=== PATIENT | female | born 1950 | race Caucasian/White ===

== ENCOUNTER 2018-07-28 12:33 | Observation (INO) | payer OTHER, MEDICARE ==
[2018-07-28] MEDS ORDERED: ASPIRIN 81 MG CHEWABLE TAB PO ONE (13:00)
--- NOTE | 2018-07-28 13:25 | EDPHY ---
H & P Time Seen by Provider: 07/28/18 13:00 HPI/ROS: HPI Chest pain, lightheaded, high blood pressure. 68-year-old female by private vehicle. This patient reports that she has had intermittent chest pain described as left-sided, sharp, achy, ongoing for the last 1-2 weeks but worse over the last 3-5 days. She describes radiation of the pain into her left arm. She was at the office of her ENT physician to be evaluated for sinus congestion. She recently had a facial and sinus CT, Dr. Elkin Almaguer evaluated her. She told him about her chest pain and noted that her blood pressure was high and advised her to come to the emergency department to be evaluated. She currently does not have any chest pain. She has no previous history of coronary artery disease. Denies a history of hyperlipidemia , diabetes, no formal diagnosis of hypertension. She denies any significant family history of coronary artery disease. She reports she has had intermittent lightheadedness and some intermittent dizziness. She has an appointment to see Dr. Shravan Wilson tomorrow for evaluation of her dizziness which she describes as both a lightheadedness and a vertigo. She currently denies any lightheadedness or dizziness. She was also told by her primary care physician that she has a high hematocrit and is going to see Hematology, Dr. Jaleesa koroma, scheduled appointment in 2 weeks. She denies any association of her pain with exertion. ROS: Constitutional: No fever, no chills. As above. Eyes: No discharge. No changes in vision. ENT: No sore throat. No nasal congestion or rhinorrhea. Respiratory: No cough. No shortness of breath. Cardiac: As above, no palpitations. Gastrointestinal: No abdominal pain, no vomiting, no diarrhea. Genitourinary: No hematuria. No dysuria or increased frequency with urination. Musculoskeletal: No back pain. No neck pain. No myalgias or arthralgias. Skin: No rashes. Neurological: No headache. No focal weakness or altered sensation. Past medical history: Osteoporosis, scleroderma, as above. Social history: Nonsmoker. She is here by herself. No alcohol. Physical Exam: General Appearance: Alert, no distress. This patient is responding to questions appropriately and in full sentences. This patient appears well- hydrated and well-nourished. Eyes: Pupils equal and round no pallor or injection. No lid edema, erythema or injection. Respiratory: There are no retractions, lungs are clear to auscultation with good air movement bilaterally. No tachypnea. Cardiovascular: Regular rate and rhythm. No murmur. Gastrointestinal: Abdomen is soft and nontender, no masses, bowel sounds normal. No focal tenderness at McBurney's point. No Jasso sign. Neurological: Motor sensory function is grossly intact. Cranial nerves are normal. Gait is normal. Skin: Warm and dry, no rashes. Musculoskeletal: Neck is supple and nontender. Extremities are symmetrical. All joints range without pain or impingement. Psychiatric: No agitation. No depression. Database: EKG: EKG time is 12:57 p.m.; EKG shows a narrow complex normal sinus rhythm with a ventricular rate of 72. The MT, QRS, QT intervals are within normal limits. There are no ST-T wave changes indicative of ischemic or injury pattern. No evidence of right heart strain. Interpreted by me. Imaging: Chest x-ray AP portable: The cardiac mediastinal silhouette is unremarkable. No evidence of pneumothorax or infiltrate. Findings consistent with emphysema. No acute cardiopulmonary disease process. Interpreted by me. Procedures: Emergency department course: Triage vital signs reviewed. She was moderately hypertensive. Vital signs are otherwise negative. On my evaluation her blood pressure is 143/85. 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 She was given 324 mg of chewed aspirin. EKG obtained and reviewed by myself. Heart score is 3. 2:50 p.m., the patient was re-evaluated, results of her diagnostic workup were discussed with her. I explained her heart score. I discussed admission for observation and further testing verses discharged to home with outpatient cardiology follow-up. The patient competently engages in shared decision making. They demonstrate capacitance to make decisions. She is currently thinking about what she wants to do. 3:20 p.m., patient re-evaluated, she appears comfortable at this time. Her blood pressure is currently 164/98. She is concerned about this. She has decided that she would like to be admitted to the hospital for further evaluation overnight. Hospitalist nila. 3:40 p.m., spoke with hospitalist Dr. Jaime. Case discussed in detail with her. She accepts this patient for admission. The patient was admitted in stable condition to telemetry observation. Differential Diagnosis: The differential diagnosis on this patient includes but is not limited to angina , musculoskeletal pain. Myocardial infarction, pericarditis, myocarditis, pneumothorax, aortic dissection unlikely. This represents a partial list of diagnoses considered. These considerations are based on history, physical exam , past history, reassessment and diagnostic testing. Smoking Status: Never smoked Constitutional: Initial Vital Signs Temperature (C) 36.4 C 07/28/18 12:34 Heart Rate 78 07/28/18 12:34 Respiratory Rate 16 07/28/18 12:34 Blood Pressure 159/101 H 07/28/18 12:34 O2 Sat (%) 95 07/28/18 12:34 O2 Delivery Mode Room Air Allergies/Adverse Reactions: Shellfish *RETIRED-02/02/12 [Shellfish] Allergy (Severe, Verified 08/15/11 11:23 ) Sulfa (Sulfonamide Antibiotics) Allergy (Severe, Verified 08/15/11 11:23) Home Medications: Medication Instructions Recorded Hydrocodone Bit/Acetaminophen 1 tab PO Q4-6PRN #15 tab 08/15/11 [Vicodin 5/500] No Medications [NO HOME 1 ea MISC 08/15/11 MEDICATIONS] Medical Decision Making - Diagnostics Imaging Results: Imaging Impressions Chest X-Ray 07/28/18 13:00 Impression: COPD with no acute localizing features, or substantial change from 05/13/2013. - Data Points Laboratory Results: Laboratory Results 07/28/18 14:04 07/28/18 13:10 07/28/18 07/28/18 07/28/18 14:04 14:04 13:13 WBC 6.76 10^3/uL 10^3/uL (3.80-9.50) RBC 5.11 10^6/uL 10^6/uL (4.18-5.33) Hgb 15.5 g/dL g/dL (12.6-16.3) Hct 46.2 % % (38.0-47.0) MCV 90.4 fL fL (81.5-99.8) MCH 30.3 pg pg (27.9-34.1) MCHC 33.5 g/dL g/dL (32.4-36.7) RDW 13.4 % % (11.5-15.2) Plt Count 293 10^3/uL 10^3/uL (150-400) MPV 10.8 fL fL (8.7-11.7) Neut % (Auto) 64.0 % % (39.3-74.2) Lymph % (Auto) 24.3 % % (15.0-45.0) [place] % (Auto) 5.8 % % (4.5-13.0) Eos % (Auto) 4.9 % % (0.6-7.6) Baso % (Auto) 0.9 % % (0.3-1.7) Nucleat RBC Rel Count 0.0 % % (0.0-0.2) Absolute Neuts (auto) 4.33 10^3/uL 10^3/uL (1.70-6.50) Absolute Lymphs (auto) 1.64 10^3/uL 10^3/uL (1.00-3.00) Absolute Monos (auto) 0.39 10^3/uL 10^3/uL (0.30-0.80) Absolute Eos (auto) 0.33 10^3/uL 10^3/uL (0.03-0.40) Absolute Basos (auto) 0.06 10^3/uL 10^3/uL (0.02-0.10) Absolute Nucleated RBC 0.00 10^3/uL 10^3/uL (0-0.01) Immature Gran % 0.1 % % (0.0-1.1) Immature Gran # 0.01 10^3/uL 10^3/uL (0.00-0.10) PT 12.1 SEC SEC (12.0-15.0) INR 0.93 (0.83-1.16) APTT 26.9 SEC SEC (23.0-38.0) Sodium Potassium Chloride Carbon Dioxide Anion Gap BUN Creatinine Estimated GFR Glucose Calcium POC Troponin I 0.00 ng/mL ng/mL (0.00-0.08) Specimen Hemolysis 07/28/18 07/28/18 07/28/18 13:10 13:10 13:10 WBC REJ RBC REJ Hgb REJ Hct REJ MCV REJ MCH REJ MCHC REJ RDW REJ Plt Count REJ MPV REJ Neut % (Auto) REJ Lymph % (Auto) REJ [place] % (Auto) REJ Eos % (Auto) REJ Baso % (Auto) REJ Nucleat RBC Rel Count REJ Absolute Neuts (auto) REJ Absolute Lymphs (auto) REJ Absolute Monos (auto) REJ Absolute Eos (auto) REJ Absolute Basos (auto) REJ Absolute Nucleated RBC REJ Immature Gran % REJ Immature Gran # REJ PT REJ INR REJ APTT REJ Sodium 137 mEq/L mEq/L (135-145) Potassium 4.9 mEq/L mEq/L (3.5-5.2) Chloride 105 mEq/L mEq/L (97-110) Carbon Dioxide 23 mEq/l mEq/l (22-31) Anion Gap 9 mEq/L mEq/L (6-14) BUN 7 mg/dL mg/dL (7-23) Creatinine 0.5 mg/dL L mg/dL (0.6-1.0) Estimated GFR > 60 Glucose 91 mg/dL mg/dL (70-100) Calcium 9.8 mg/dL mg/dL (8.5-10.4) POC Troponin I Specimen Hemolysis 121 Medications Given: Discontinued Medications Aspirin (Aspirin) 324 mg PO EDNOW ONE Stop: 07/28/18 13:01 Last Admin: 07/28/18 13:18 Dose: 324 mg Point of Care Test Results: Chemistry 07/28/18 13:13 POC Troponin I 0.00 ng/mL ng/mL (0.00-0.08) Departure - Departure Disposition: [facility] Inpatient Acute Clinical Impression: Chest pain, Elevated blood pressure reading Referrals: Maddi Link MD [Primary Care Provider] - As per Instructions
[2018-07-28 14:23] LABS: PLATELET COUNT 293 10^3/uL (150-400)
[2018-07-28 14:33] LABS: INR 0.93 (0.83-1.16); PROTIME(PATIENT) 12.1 SEC (12.0-15.0)
--- NOTE | 2018-07-28 16:39 | PDGENHP ---
<Libra Tarango - Last Filed: 07/28/18 19:03> History and Physical - Chief Complaint Chest pain - History of Present Illness HPI: 68 y/o female w/ hx of osteoporosis and scleroderma presenting to ED w/ c/ o 1-2 weeks worth of intermittent radiating left-sided chest pains. It is described as sharp, achy severity 7/10 located superior of nipple and axillary region w/ associated left arm heaviness. There is no pattern to it, occurs at random regardless if at rest or exertion and she experiences approximately 5-6 episodes per day. She has a multitude of ailments including: dizziness/lightheadedness present a couple of years and was going to f/u w/ Dr. Wilson this week, GI issues w/ LUQ discomfort and acid reflux/indigestion symptoms who was to f/u with GI MD sometime soon, and chronic sinus congestion who saw an ENT who noticed her elevated blood pressure which per her, BP is usually lower. She is being admitted for further testing and monitoring for hypertension and intermittent chest pain. History Information - Allergies/Home Medication List Allergies/Adverse Reactions: Shellfish *RETIRED-02/02/12 [Shellfish] Allergy (Severe, Verified 08/15/11 11:23 ) Sulfa (Sulfonamide Antibiotics) Allergy (Severe, Verified 08/15/11 11:23) Home Medications: NK [No Known Home Meds] 07/28/18 [Last Taken Unknown] I have personally reviewed and updated: family history, medical history, social history, surgical history Past Medical History: Osteoporosis. Scleroderma - Surgical History Additional surgical history: Tonsillectomy. D/C's. Left and right breast biopsy for scleroderma - Family History Positive for: cancer (Father of brain cancer. Mother of adenocarcinoma ) - Social History Smoking Status: Never smoked Alcohol Use: None Drug Use: None Additional social history: Moved from [place] one year ago. . Lives alone. Has 2 children - one recently graduated [employer] and is traveling in the [facility], the other lives in [place]. 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 She has her LESLI. She enjoys pilates. Her dog recently in January 2018. Review of Systems Review of Systems: ROS: 10pt was reviewed & negative except for what was stated in HPI & below Physical Exam Physical Exam: Lab data and imaging were reviewed. Case discussed with admitting physician, Dr. Stewart Cabrera. Trop: 0.00 EKG: SR, 72 bpm, normal axis CXR: COPD w/o focal infiltrate Temp Pulse Resp BP Pulse Ox 36.8 C 64 16 163/99 H 97 07/28/18 16:29 07/28/18 16:29 07/28/18 16:29 07/28/18 16:29 07/28/18 16:29 Constitutional: no apparent distress, appears nourished, not in pain Eyes: PERRL, anicteric sclera, EOMI Ears, Nose, Mouth, Throat: moist mucous membranes, hearing normal, ears appear normal, no oral mucosal ulcers Cardiovascular: regular rate and rhythym, no murmur, rub, or gallop, No edema Peripheral Pulses: 2+: dorsalis-pedis (R) (Radial 2+), dorsalis-pedis (L) ( Radial 2+) Respiratory: no respiratory distress, no rales or rhonchi, clear to auscultation Gastrointestinal: normoactive bowel sounds, no palpable masses, tenderness (LUQ) Genitourinary: no bladder fullness, no bladder tenderness Skin: warm, normal color, no rashes or abrasions, no fluctuance, no induration, No mottled Musculoskeletal: full muscle strength, no muscle tenderness, normal joint ROM, no joint effusions Neurologic: AAOx3, sensation intact bilaterally, CN II-XII Intact Psychiatric: interacting appropriately, not encephalopathic, thought process linear, anxious Lymph, Heme, Immunologic: no cervical LAD, no supraclavicular LAD Lab Data & Imaging Review 07/28/18 14:04 07/28/18 13:10 WBC 6.76 10^3/uL (3.80-9.50) 07/28/18 14:04 RBC 5.11 10^6/uL (4.18-5.33) 07/28/18 14:04 Hgb 15.5 g/dL (12.6-16.3) 07/28/18 14:04 Hct 46.2 % (38.0-47.0) 07/28/18 14:04 MCV 90.4 fL (81.5-99.8) 07/28/18 14:04 MCH 30.3 pg (27.9-34.1) 07/28/18 14:04 MCHC 33.5 g/dL (32.4-36.7) 07/28/18 14:04 RDW 13.4 % (11.5-15.2) 07/28/18 14:04 Plt Count 293 10^3/uL (150-400) 07/28/18 14:04 MPV 10.8 fL (8.7-11.7) 07/28/18 14:04 Neut % (Auto) 64.0 % (39.3-74.2) 07/28/18 14:04 Lymph % (Auto) 24.3 % (15.0-45.0) 07/28/18 14:04 Walker % (Auto) 5.8 % (4.5-13.0) 07/28/18 14:04 Eos % (Auto) 4.9 % (0.6-7.6) 07/28/18 14:04 Baso % (Auto) 0.9 % (0.3-1.7) 07/28/18 14:04 Nucleat RBC Rel Count 0.0 % (0.0-0.2) 07/28/18 14:04 Absolute Neuts (auto) 4.33 10^3/uL (1.70-6.50) 07/28/18 14:04 Absolute Lymphs (auto) 1.64 10^3/uL (1.00-3.00) 07/28/18 14:04 Absolute Monos (auto) 0.39 10^3/uL (0.30-0.80) 07/28/18 14:04 Absolute Eos (auto) 0.33 10^3/uL (0.03-0.40) 07/28/18 14:04 Absolute Basos (auto) 0.06 10^3/uL (0.02-0.10) 07/28/18 14:04 Absolute Nucleated RBC 0.00 10^3/uL (0-0.01) 07/28/18 14:04 Immature Gran % 0.1 % (0.0-1.1) 07/28/18 14:04 Immature Gran # 0.01 10^3/uL (0.00-0.10) 07/28/18 14:04 PT 12.1 SEC (12.0-15.0) 07/28/18 14:04 INR 0.93 (0.83-1.16) 07/28/18 14:04 APTT 26.9 SEC (23.0-38.0) 07/28/18 14:04 Sodium 137 mEq/L (135-145) 07/28/18 13:10 Potassium 4.9 mEq/L (3.5-5.2) 07/28/18 13:10 Chloride 105 mEq/L (97-110) 07/28/18 13:10 Carbon Dioxide 23 mEq/l (22-31) 07/28/18 13:10 Anion Gap 9 mEq/L (6-14) 07/28/18 13:10 BUN 7 mg/dL (7-23) 07/28/18 13:10 Creatinine 0.5 mg/dL (0.6-1.0) L 07/28/18 13:10 Estimated GFR > 60 07/28/18 13:10 Glucose 91 mg/dL (70-100) 07/28/18 13:10 Calcium 9.8 mg/dL (8.5-10.4) 07/28/18 13:10 POC Troponin I 0.00 ng/mL (0.00-0.08) 07/28/18 13:13 Specimen Hemolysis 121 07/28/18 13:10 Assessment & Plan Plan: A: This is a 68 y/o female with hx of scleroderma and osteoporosis presenting to the ER under the recommendation of her ENT MD d/t elevated blood pressure with associated intermittent left sided chest pain, radiating to left arm that has been present for the last 1-2 weeks. She is currently not experiencing chest pain nor left arm heaviness. 1. Chest pain: Heart score is 3. EKG unremarkable. Initial troponin negative. Last week, she had a right-sided biopsy for her scleroderma and she initially though it was residual pain from procedure. -EKG PRN if symptomatic -Cont tele monitoring -Cycle trop x 2 -Lipid in AM -Exercise stress test in AM -If unremarkable, recommend f/u outpatient cards 2. Elevated blood pressure: She is hemodynamically stable, last BP read 163/99. -Cont tele monitoring -Hydralazine PO PRN BID if SBP > 170 bpm -Q8 VS 3. Abdominal discomfort: Reports acid reflux/indigestion issues in the past as well as now with abdominal discomfort and indigestion. She was on a proton pump inhibitor but stopped it for unknown reasons. -Barium swallow test in AM; NPO @ midnight tonight -Anti-emetics PRN -GI cocktail once 4. Scleroderma: w/o evidence of significant skin issues. She does have a floor hand for this. Diet: Regular, NPO @ midnight tonight VTE ppx: SCDs Code: Full Dispo: Admit to obs <Stewart Cabrera - Last Filed: 08/02/18 15:16> History and Physical - History of Present Illness Review of Systems Review of Systems: Physical Exam Physical Exam: Temp Pulse Resp BP Pulse Ox 36.6 C 79 18 127/80 H 92 07/29/18 11:28 07/29/18 11:28 07/29/18 11:28 07/29/18 11:28 07/29/18 11:28 Lab Data & Imaging Review 07/29/18 03:14 07/29/18 03:14 WBC 7.71 10^3/uL (3.80-9.50) 07/29/18 03:14 RBC 5.12 10^6/uL (4.18-5.33) 07/29/18 03:14 Hgb 15.1 g/dL (12.6-16.3) 07/29/18 03:14 Hct 47.3 % (38.0-47.0) H 07/29/18 03:14 MCV 92.4 fL (81.5-99.8) 07/29/18 03:14 MCH 29.5 pg (27.9-34.1) 07/29/18 03:14 MCHC 31.9 g/dL (32.4-36.7) L 07/29/18 03:14 RDW 13.5 % (11.5-15.2) 07/29/18 03:14 Plt Count 304 10^3/uL (150-400) 07/29/18 03:14 MPV 10.6 fL (8.7-11.7) 07/29/18 03:14 Neut % (Auto) 50.0 % (39.3-74.2) 07/29/18 03:14 Lymph % (Auto) 35.1 % (15.0-45.0) 07/29/18 03:14 Walker % (Auto) 6.6 % (4.5-13.0) 07/29/18 03:14 Eos % (Auto) 7.1 % (0.6-7.6) 07/29/18 03:14 Baso % (Auto) 0.9 % (0.3-1.7) 07/29/18 03:14 Nucleat RBC Rel Count 0.0 % (0.0-0.2) 07/29/18 03:14 Absolute Neuts (auto) 3.85 10^3/uL (1.70-6.50) 07/29/18 03:14 Absolute Lymphs (auto) 2.71 10^3/uL (1.00-3.00) 07/29/18 03:14 Absolute Monos (auto) 0.51 10^3/uL (0.30-0.80) 07/29/18 03:14 Absolute Eos (auto) 0.55 10^3/uL (0.03-0.40) H 07/29/18 03:14 Absolute Basos (auto) 0.07 10^3/uL (0.02-0.10) 07/29/18 03:14 Absolute Nucleated RBC 0.00 10^3/uL (0-0.01) 07/29/18 03:14 Immature Gran % 0.3 % (0.0-1.1) 07/29/18 03:14 Immature Gran # 0.02 10^3/uL (0.00-0.10) 07/29/18 03:14 PT 12.1 SEC (12.0-15.0) 07/28/18 14:04 INR 0.93 (0.83-1.16) 07/28/18 14:04 APTT 26.9 SEC (23.0-38.0) 07/28/18 14:04 Sodium 139 mEq/L (135-145) 07/29/18 03:14 Potassium 4.9 mEq/L (3.5-5.2) 07/29/18 03:14 Chloride 104 mEq/L (97-110) 07/29/18 03:14 Carbon Dioxide 28 mEq/l (22-31) 07/29/18 03:14 Anion Gap 7 mEq/L (6-14) 07/29/18 03:14 BUN 12 mg/dL (7-23) 07/29/18 03:14 Creatinine 0.6 mg/dL (0.6-1.0) 07/29/18 03:14 Estimated GFR > 60 07/29/18 03:14 Glucose 92 mg/dL (70-100) 07/29/18 03:14 Calcium 9.3 mg/dL (8.5-10.4) 07/29/18 03:14 POC Troponin I 0.00 ng/mL (0.00-0.08) 07/28/18 13:13 Troponin I < 0.012 ng/mL (0.000-0.034) 07/29/18 03:14 Triglycerides 142 mg/dL (35-135) H 07/29/18 03:14 Cholesterol 195 mg/dL (140-220) 07/29/18 03:14 Cholesterol Risk Factr 1.0 (0.2-1.0) 07/29/18 03:14 LDL Cholesterol, Calc 121 mg/dL (80-100) H 07/29/18 03:14 LDL Risk Factor 0.8 (0.2-1.0) 07/29/18 03:14 VLDL Cholesterol 28 mg/dL (8-25) H 07/29/18 03:14 Non-HDL Cholesterol 149 mg/dL (90-129) H 07/29/18 03:14 HDL Cholesterol 46 mg/dL (40-85) 07/29/18 03:14 LDL/HDL Ratio 2.62 RATIO (1.00-3.22) 07/29/18 03:14 Cholesterol/HDL Ratio 4.24 RATIO (1.00-4.44) 07/29/18 03:14 Specimen Hemolysis 121 07/28/18 13:10 Assessment & Plan Plan: Reviewed care plan with EMILY Tarango, agree with her assessment and plan as above. Please see separate documentation for further details.
[2018-07-28] MEDS ORDERED: ONDANSETRON DISINTEGRATING 4 MG TAB PO PRN (17:37)
[2018-07-28] MEDS ORDERED: ACETAMINOPHEN 325 MG TAB PO PRN (17:37)
[2018-07-28] MEDS ORDERED: ONDANSETRON 4 MG/2 ML VIAL IVP PRN (17:37)
[2018-07-28] MEDS ORDERED: hydrALAZINE 10 MG TAB PO PRN (17:45)
[2018-07-28] MEDS ORDERED: HYOSCYAMINE SULFATE 0.125 MG TAB PO ONE (17:58)
[2018-07-28] MEDS ORDERED: MAG HYDROX/AL HYDROX/SIMETH 30 ML UDCUP PO ONE (17:58)
[2018-07-28] MEDS ORDERED: LIDOCAINE 2% VISCOUS 15 ML UDCUP PO ONE (17:58)
--- NOTE | 2018-07-28 18:03 | HOSPPROG ---
Hospitalist Progress Note Assessment/Plan: 68 yo F with PMH of scleroderma presenting with c/o left sided chest pain radiating to her left arm and shoulder that has been present on and off for the last week. Patient with multiple other complaints that are being worked up by various specialists as well. # chest pain: heart score of 3, patient with minimal risk factors but very concerned by the symptoms. Initial w/u so far negative with normal ecg and normal troponin. Will monitor overnight on tele, obtain serial trops/ecg and exercise stress test in am. ? if this is GI in nature given dysphagia and abd discomfort, will try GI cocktail. 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 # scleroderma: patient without significant skin findings of scleroderma, complaining of swallowing issues as above but unknown severity of her disease limited versus systemic, she follows up with Dr. Meza # abdominal distension/left sided abdominal pain: abdominal exam is benign, she has f/u with GI next week to have this further evaluated, will defer further w/ u in house at this time # borderline htn: patient had a sbp of 135 then 149 prior to arrival here and has been in 150-160 range in the ER. Per patient this is very unusual, she generally has low to normal BP. Will continue to monitor, may require dc on BP medication # chronic sinusitis: she was being evaluated for this at ENT prior to arrival here, defer management to their care # left sided weakness: patient reports 1 year of left sided weakness, not very evident on exam, she has a plan to f/u with neurology in the coming week # elevated h/h: patient had mildly elevated h/h in June, normal today, she has an appointment to see Dr. Valdes in the coming weeks to have this evaluated further # observation status Patient new to my care. Old records reviewed and summarized as above. Care plan reviewed with ER doctor and EMILY Tarango as above. Please see separate H&P by EMILY Tarango for further details Objective: Vital Signs Temp Pulse Resp BP Pulse Ox 36.8 C 76 20 134/93 H 94 07/28/18 16:29 07/28/18 17:05 07/28/18 17:05 07/28/18 17:05 07/28/18 17:05 07/27/18 07/28/18 07/29/18 05:59 05:59 05:59 Intake Total 150 Balance 150 PT 12.1 SEC (12.0-15.0) 07/28/18 14:04 INR 0.93 (0.83-1.16) 07/28/18 14:04 ICD10 Worksheet Patient Problems: Problems Problem Status Onset Chest pain Acute Elevated blood pressure reading Acute
[2018-07-29 04:30] LABS: PLATELET COUNT 304 10^3/uL (150-400)
[2018-07-29 11:29] VITALS: BP 127/80
--- NOTE | 2018-07-29 12:23 | ASMTCMCOM ---
CM Note CM Note Notes: 07/29/2018 Case Management Note Discussed pt during rounds. Pt admitted for chest pain and elevated blood pressure. Per RN in rounds pt has stress test and barium swallow study planned for today. Pt has appointment with neurology on Thursday and a GI appointment next week. There are no therapy evals ordered today. There are no identified case management d/c needs identified d/t pt age, family support, well resourced follow up and independence with ADL's prior to admission. Case Management d/c poc: independent with follow up as directed. Case Management available if needs change. Date Signed: 07/29/2018 12:22 PM Electronically Signed By:Angela Barba RN
--- NOTE | 2018-07-29 14:05 | PDDCSUM ---
Discharge Summary Discharge Summary: 68 yo F with PMH of scleroderma presenting with c/o left sided chest pain radiating to her left arm and shoulder that has been present on and off for the last week. Patient with multiple other complaints that are being worked up by various specialists as well. She was admitted. She had a treadmill stress test that did not show ischemia. She had unremarkable cp r/o including negative EKG, Telemetry, and troponin. She had an Esophagram which shows no aspiration, strictures, or hiatal hernia. She reports that her symptoms are much better today and that she has no cp or sob. She did have some abd pain earlier but none either. On exam she had bilateral wheeze with normal work of breathing. I reviewed her CXR with her in detail which shows significant signs of obstructive lung disease. She reports that she has a hx of Asthma but that its no longer active. I recommended that we start a bronchodilator and that untreated Obstructive lung disease can present with chest pain such as what she was having. She politely declined an lung/RAD interventions. She agrees to f/u with her physician team as she has several appointments in the near future. DDX: # chest pain: heart score of 3, patient with minimal risk factors # dysphagia: patient describing increasing difficulty with swallowing both water and food. None reported on the day of discharge # scleroderma: she follows up with Dr. Meza # abdominal distension/left sided abdominal pain: abdominal exam is benign, she has f/u with GI next week to have this further evaluated, will defer further w/ u in house at this time # borderline htn: patient had a sbp of 135 then 149 prior to arrival here and has been in 150-160 range in the ER. Her BP is better today. We discussed reasons for why she may have had elevated bp to include anxiety, stress, chest pain, untreated asthma, abd pain. She denies any of these symptoms at this time # chronic sinusitis: she was being evaluated for this at ENT prior to arrival here, defer management to their care # left sided weakness: patient reports 1 year of left sided weakness, not very evident on exam, she has a plan to f/u with neurology in the coming week # elevated h/h: patient had mildly elevated h/h in June, normal today, she has an appointment to see Dr. Valdes in the coming weeks to have this evaluated further Exam: NAD AAOX3 RRR ACTIVE WHEEZING S/NT/ND MEDS: SEE MED REC. NO NEW CHANGES TOTAL TIME SPENT ON D/C IS 35 MINS
--- NOTE | 2018-07-29 14:12 | CPR ---
[f rep st] NONINVASIVE CARDIAC PROCEDURE REPORT INDICATION FOR PROCEDURE: Episodes of chest pressure, evaluating for ischemia. PRE: After obtaining informed consent, the patient was placed on electrocardiogram. Initial EKG moira ws sinus rhythm, with normal axis, with nonspecific T-wave abnormalities. Patient denies any chest p ain, pressure, or symptoms suggesting of ischemia. Her initial blood pressure 112/78, saturating 95% on room air. STRESS: The patient was placed on an exercise treadmill, following standard Priyank protocol, with the following findings: 1. Patient exercised 6 minutes. 2. 7.2 METs. 3. Patient obtained a heart rate of 142 beats per minute, which was 92% of MPHR. Patient had no constanza st pain, pressure, or symptoms suggesting of ischemia during testing. 4. Patient had no significant ST shifts at peak exercise suggesting of ischemia. 5. No arrhythmias were noted during testing. 6. SpO2 remained greater than 90%. 7. BP response: Rest 112/78, peak 152/76. 8. Testing was stopped due to maximum effort. 9. Briscoe treadmill score of 6, placing patient at low cardiovascular risk. RECOVERY: Patient recovered for 5 minutes with heart rate and BP returning back to baseline. She re mained asymptomatic. No arrhythmias. The patient was transferred back to PCU. IMPRESSION: 68-year-old female undergoing exercise treadmill test for evaluation of ischemia, no constanza st pain or pressure suggesting of ischemia during testing, no significant ST shift at peak exercise s uggesting of ischemia. Normal blood pressure response. Briscoe treadmill score of 6, placing her at lo w cardiovascular risk. Results were told to the patient's nurse to relay to the hospitalist services . /[id number]/MODL
--- NOTE | 2018-07-29 14:48 | ASDISCHSUM ---
Discharge Information Plan Status:Home with No Needs Medically Cleared to Leave:07/28/2018 Discharge Date:07/28/2018 CM D/C Disposition:Home, Routine, Self-Care ADT D/C Disposition:Home, Routine, Self-Care Projected Discharge Date:07/28/2018 Transportation at D/C: Discharge Delay Reason: Follow-Up Date:07/28/2018 Discharge Slot: Final Diagnosis: Placement Information Patient Contact Information Contact Name:YELENA Relationship:Daughter Address: Work Phone: City: [facility] Phone: State/Zip Code: Email: Financial Information Financial Class:Medicare Primary Plan Desc:MEDICARE OUTPATIENT Primary Plan Number:[id number] Secondary Plan Desc:[employer]/M[employer] SUPPLEMENT Secondary Plan Number:[id number] Assessment Information LACE LACE Length of stay for Answers: Less than 1 day current admission Acuity / Level of Answers: No Care: Did the patient have an inpatient admission? Comorbidities - select Answers: Opioid dependence all that apply / Chronic pain # of Emergency department Answers: 1-2 visits in the last 6 months Score: 5 Date Signed: 07/29/2018 02:46 PM Electronically Signed By:Angela Barba RN [facility] CM Progress Note CM Note CM Note Notes: 07/29/2018 Case Management Note Discussed pt during rounds. Pt admitted for chest pain and elevated blood pressure. Per RN in rounds pt has stress test and barium swallow study planned for today. Pt has appointment with neurology on Thursday and a GI appointment next week. There are no therapy evals ordered today. There are no identified case management d/c needs identified d/t pt age, family support, well resourced follow up and independence with ADL's prior to admission. Case Management d/c poc: independent with follow up as directed. Case Management available if needs change. Date Signed: 07/29/2018 12:22 PM Electronically Signed By:Angela Barba RN Intervention Information Intervention Type:*LOPEZ-Signed Date of Service:07/29/2018 02:20 PM Patient Type:Observation Staff Member:Shawna Ortiz Hours: Discipline: Severity: Comment:
--- NOTE | 2018-07-29 15:48 | CPEKG ---
Test Reason : OPEN Blood Pressure : / mmHG Vent. Rate : 072 BPM Atrial Rate : 072 BPM P-R Int : 147 ms QRS Dur : 086 ms QT Int : 374 ms P-R-T Axes : 087 051 057 degrees QTc Int : 410 ms Sinus rhythm Confirmed by Oly Lundberg ([id number] on 07/29/2018 3:47:58 PM Referred By: PHYSICIAN ED Confirmed By:Oly Lundberg
== END 2018-07-29 14:52 | disposition home or self-care (01) ==
LOC: MERGE 15:39 → F2W 16:37
PROVIDERS: ADMIT Internal Medicine; ATTEND Internal Medicine
DX: R07.9 Chest pain, unspecified (principal); R06.2 Wheezing; J43.9 Emphysema, unspecified; R10.12 Left upper quadrant pain; K21.9 Gastro-esophageal reflux disease without esophagitis; I10 Essential (primary) hypertension; M34.9 Systemic sclerosis, unspecified; M81.0 Age-related osteoporosis without current pathological fracture
CPT/HCPCS: 71045; 74220; 93005; 93017; 99285; G0378; 84484-ER

== ENCOUNTER → 2018-08-03 | Outpatient (CLI) | payer OTHER, MEDICARE | LOC: FIMAGING 06:38 | PROVIDERS: ATTEND Physical Medicine & Rehabilitation | DX: M54.2 Cervicalgia (principal); M54.6 Pain in thoracic spine; R42 Dizziness and giddiness; R51 Headache | CPT/HCPCS: 70551-PN ==

== ENCOUNTER → 2018-08-06 | Outpatient (CLI) | payer OTHER, MEDICARE | LOC: FIMAGING 15:52 | PROVIDERS: ATTEND Psychiatry & Neurology Neurology | DX: M54.6 Pain in thoracic spine (principal) ==

== ENCOUNTER → 2018-08-12 | Outpatient (CLI) | payer OTHER, MEDICARE | LOC: EMCIMAGING 13:29 | PROVIDERS: ATTEND Psychiatry & Neurology Neurology | DX: D33.3 Benign neoplasm of cranial nerves (principal); J33.9 Nasal polyp, unspecified | CPT/HCPCS: 70553-PN ==